=== PATIENT | female | born 1935 | race Caucasian/White ===

== ENCOUNTER 2016-06-12 17:44 | Inpatient (IN) | payer MEDICARE, OTHER ==
[~2016-06-12 17:44] MED LIST: CIPRO XR500 MG; CITRUCEL500 MG PO; COUMADIN3 MG; JANTOVEN4 MG PO; METRONIDAZOLE500 MG; PRINIVIL5 MG PO; ULTRAM50 MG PO
[2016-06-12 19:49] LABS: BASO % 0.2 % (0-2); EOSINOPHIL ABSOLUTE COUNT 0.1 tho/cmm (0.0-0.7); HCT-HEMATOCRIT 46.9 % (34.0-49.0); HGB-HEMOGLOBIN 15.5 gm/dl (12.0-15.5); IMMATURE GRANULOCYTES ABSOLUTE 0.02 tho/cmm (0-0.03); IMMATURE GRANULOCYTES PERCENT 0.2 % (0-0.3); LYMPH % 15.1 % (20-45); LYMPH ABSOLUTE COUNT 1.5 tho/cmm (0.8-4.5); MCH (MEAN CORPUSCULAR HGB) 29.1 pg (28.0-32.0); MEAN PLATELET VOLUME 9.3 cmc (9.4-12.4); MONO % 9.1 % (0-12); MONOCYTE ABSOLUTE COUNT 0.9 tho/cmm (0.0-1.2); NEUTROPHIL ABSOLUTE COUNT 7.4 tho/cmm (1.6-8.0); NEUTROPHIL-AUTOMATED 7.4 tho/cmm (1.6-8.0); NEUTROPHILS % 74.4 % (40-80); PLATELET COUNT 253 tho/cmm (150-450); RED BLOOD COUNT 5.33 mil/cmm (4.00-5.20); RED CELL DISTRIBUTION WIDTH 13.9 % (12.4-16.4); WHITE BLOOD COUNT 9.9 tho/cmm (4.0-10.0)
[2016-06-12] MEDS ORDERED: ULTRAM50 M1 PO (19:53)
[2016-06-12] MEDS ORDERED: PRINIVIL5 M1 PO (19:53)
[2016-06-12] MEDS ORDERED: FLUTICASONE PRO16 G1 (19:53)
[2016-06-12] MEDS ORDERED: TRIAMTERENE-HC1 EAC2 PO ×2 (19:53→22:48)
[2016-06-12 19:54] LABS: INR 3.2 INR (0.9-1.1); PROTHROMBIN TIME 38.7 SECONDS (9.0-13.6)
[2016-06-12] MEDS ORDERED: PREDNISONE5 M1 PO (19:54)
[2016-06-12] MEDS ORDERED: COUMADIN4 M1 PO (19:55)
[2016-06-12] MEDS ORDERED: CALCIUM CARBON500 M2 PO (19:58)
[2016-06-12] MEDS ORDERED: ALLERGY10 M2 PO (19:58)
[2016-06-12] MEDS ORDERED: MULTIVITAMINS1 EAC7 PO (19:58)
[2016-06-12] MEDS ORDERED: MAGNESIUM OXID400 M1 PO (19:58)
[2016-06-12] MEDS ORDERED: FISH OIL 11000 MG/CA PO (19:58)
[2016-06-12 20:46] LABS: ANION GAP 13 mmol/L (0-20); BLOOD UREA NITROGEN 19 mg/dl (6-24); CALCIUM 9.2 mg/dl (8.5-10.5); CARBON DIOXIDE-VENOUS 28 mmol/L (22-32); CHLORIDE 99 mmol/l (96-110); CREATININE 0.83 mg/dl (0.50-1.10); GLUCOSE 139 mg/dL (70-110); POTASSIUM 3.7 mmol/L (3.7-5.1); SODIUM 136 mmol/L (135-145); eGFR VALUE FOR BLACK 77 mL/Min
[2016-06-12 21:36] LABS: URINE BILIRUBIN NEGATIVE (NEG); URINE BLOOD LARGE (NEG); URINE GLUCOSE (UA) NEGATIVE (NEG); URINE KETONE MODERATE (NEG); URINE LEUKOCYTE ESTERASE POSITIVE (NEG); URINE NITRITE NEGATIVE (NEG); URINE PROTEIN MODERATE (NEG); URINE SPECIFIC GRAVITY 1.015 (1.003-1.030)
[2016-06-12 21:37] LABS: URINE APPEARANCE CLEAR; URINE COLOR YELLOW
[2016-06-12] MEDS ORDERED: FISH OIL 1,2001 EAC5 PO (22:45)
[2016-06-12] MEDS ORDERED: CALCIUM CITRAT1 EA18 PO (22:46)
[2016-06-12] MEDS ORDERED: CO Q-10100 M2 PO (22:48)
[2016-06-12] MEDS ORDERED: CITRUCEL500 M1 PO (22:51)
[2016-06-12] MEDS ORDERED: MAGNESIUM250 M2 PO (22:52)
[2016-06-13 06:48] LABS: INR 3.3 INR (0.9-1.1); PROTHROMBIN TIME 39.8 SECONDS (9.0-13.6)
[2016-06-13 06:58] LABS: ANION GAP 12 mmol/L (0-20); BLOOD UREA NITROGEN 18 mg/dl (6-24); CALCIUM 8.3 mg/dl (8.5-10.5); CARBON DIOXIDE-VENOUS 28 mmol/L (22-32); CHLORIDE 100 mmol/l (96-110); CREATININE 0.77 mg/dl (0.50-1.10); GLUCOSE 158 mg/dL (70-110); SODIUM 136 mmol/L (135-145); eGFR VALUE FOR BLACK 85 mL/Min
[2016-06-13 06:59] LABS: POTASSIUM 3.9 mmol/L (3.7-5.1)
[2016-06-13 12:44] LABS: URINE EPITHELIAL CELLS 0 /[HPF] (0-10); URINE MUCUS 3+
[2016-06-14 05:53] LABS: INR 2.5 INR (0.9-1.1); PROTHROMBIN TIME 29.7 SECONDS (9.0-13.6)
[2016-06-15 06:52] LABS: INR 1.8 INR (0.9-1.1)
[2016-06-15] MEDS ORDERED: MIRALAX17 G2 PO (09:39)
== END 2016-06-15 10:15 | DRG 390 ==
LOC: EDMED 17:44 → EMR2 06-13 00:50 → 5WE 06-13 02:35
PROVIDERS: Physician Assistant; ADMIT Internal Medicine
DX: K56.60 Unspecified intestinal obstruction (principal); I48.91 Unspecified atrial fibrillation; Z79.01 Long term (current) use of anticoagulants; I10 Essential (primary) hypertension; Z95.0 Presence of cardiac pacemaker; Z85.43 Personal history of malignant neoplasm of ovary; R73.9 Hyperglycemia, unspecified; I51.7 Cardiomegaly; Z88.1 Allergy status to other antibiotic agents; Z88.8 Allergy status to other drugs, medicaments and biological substances
CPT/HCPCS: J0780; J1200; J2270; J2405; J7030; J7512; Q9967